=== PATIENT | male | born 1975 | race Caucasian/White ===

== ENCOUNTER 2017-03-09 12:28 | Emergency (ER) | payer OTHER ==
[2017-03-09 13:48] LABS: PLATELET COUNT 236 x10^3mcL (130-400); RED CELL DISTRIBUTION WIDTH 13.8 % (11.5-14.5)
[2017-03-09 13:52] LABS: BASOPHIL % 2.4 % (0-2)
[2017-03-09 14:02] LABS: CALCIUM 9.4 mg/dL (8.5-10.1); CARBON DIOXIDE 28.7 mmol/L (21-32); CHLORIDE SERUM 104 mmol/L (98-107); CREATININE SERUM 0.8 mg/dL (0.7-1.3); GFR1 > 60 mL/min; GLUCOSE SERUM 98 mg/dL (74-106); POTASSIUM SERUM 3.3 mmol/L (3.5-5.1); SODIUM SERUM 142 mmol/L (136-145)
[2017-03-09 14:06] LABS: ALBUMIN 3.6 g/dL (3.4-5.0); ALKALINE PHOSPHATASE 82 U/L (46-116); ALT/SGPT 19 U/L (16-63); AST/SGOT 17 U/L (15-37); BILIRUBIN TOTAL 0.4 mg/dL (0.20-1.00); HDL CHOLESTEROL 49 mg/dL (40-60); LIPASE 107 IU/L (73-393); TOTAL PROTEIN, SERUM 7.6 g/dL (6.4-8.2); TRIGLYCERIDES 71 mg/dL (<150)
[2017-03-09 14:08] LABS: CHOLESTEROL 132 mg/dL (<200); CHOLESTEROL/HDL RATIO 2.7
[2017-03-09 14:10] LABS: T3 TOTAL 1.07 ng/mL
[2017-03-09 14:14] LABS: FREE T4 1.15 ng/dL (0.76-1.46); T4(THYROXINE) 8.3 ug/dL (4.7-13.3)
[2017-03-09 15:00] VITALS: BP 145/95
== END 2017-03-09 15:00 | disposition home or self-care (01) ==
LOC: ED 12:28
PROVIDERS: Specialist
DX: K72.90 Hepatic failure, unspecified without coma (principal); S00.83XA Contusion of other part of head, initial encounter; G89.29 Other chronic pain; M54.9 Dorsalgia, unspecified; E11.9 Type 2 diabetes mellitus without complications; F17.200 Nicotine dependence, unspecified, uncomplicated; F15.90 Other stimulant use, unspecified, uncomplicated; X58.XXXA Exposure to other specified factors, initial encounter; Y93.89 Activity, other specified; Y99.8 Other external cause status; Y92.89 Other specified places as the place of occurrence of the external cause
CPT/HCPCS: 83880; 84439; J7030; Q0092

== ENCOUNTER 2017-03-22 14:30 | Emergency (ER) | payer OTHER ==
[2017-03-22 14:42] VITALS: BP 132/79
== END 2017-03-22 16:58 | disposition left against medical advice (07) ==
LOC: ED 14:30
DX: Z53.21 Procedure and treatment not carried out due to patient leaving prior to being seen by health care provider (principal)

== ENCOUNTER 2017-03-24 11:45 | Emergency (ER) | payer OTHER ==
[2017-03-24 15:54] LABS: BASOPHIL % 0.3 % (0-2); PLATELET COUNT 236 x10^3mcL (130-400)
[2017-03-24 15:56] LABS: CALCIUM 9.2 mg/dL (8.5-10.1); CARBON DIOXIDE 26.2 mmol/L (21-32); CHLORIDE SERUM 109 mmol/L (98-107); CREATININE SERUM 0.7 mg/dL (0.7-1.3); GFR1 > 60 mL/min; GLUCOSE SERUM 110 mg/dL (74-106); POTASSIUM SERUM 3.9 mmol/L (3.5-5.1); RED CELL DISTRIBUTION WIDTH 15.3 % (11.5-14.5); SODIUM SERUM 144 mmol/L (136-145)
[2017-03-24 16:00] VITALS: BP 155/98
[2017-03-24 16:08] LABS: ALBUMIN 3.6 g/dL (3.4-5.0); ALKALINE PHOSPHATASE 107 U/L (46-116); ALT/SGPT 19 U/L (16-63); AST/SGOT 9 U/L (15-37); BILIRUBIN TOTAL 0.1 mg/dL (0.20-1.00); CHOLESTEROL 146 mg/dL (<200); HDL CHOLESTEROL 49 mg/dL (40-60); LIPASE 304 IU/L (73-393); TOTAL PROTEIN, SERUM 7.8 g/dL (6.4-8.2); TRIGLYCERIDES 115 mg/dL (<150)
[2017-03-24 16:20] LABS: T3 TOTAL 1.17 ng/mL
[2017-03-24 16:27] LABS: FREE T4 1.06 ng/dL (0.76-1.46); FREE THYROXINE INDEX 2.8 ug/dL (1.4-4.5); T4(THYROXINE) 7.9 ug/dL (4.7-13.3)
== END 2017-03-24 16:43 | disposition home or self-care (01) ==
LOC: ED 11:45
PROVIDERS: Specialist
DX: R53.1 Weakness (principal); F15.20 Other stimulant dependence, uncomplicated; E11.9 Type 2 diabetes mellitus without complications
CPT/HCPCS: 83880; 84439; G0480; J7030